=== PATIENT | female | born 1985 | race Asian ===

== ENCOUNTER → 2020-10-20 11:48 | Outpatient (CLI) | payer OTHER, SELFPAY ==
[2020-10-20 12:58] LABS: NATERA MAILED SPECIMEN
== END ==
PROVIDERS: PCP Student in an Organized Health Care Education/Training Program; Visit Provider Obstetrics & Gynecology
DX: Z31.430 Encounter of female for testing for genetic disease carrier status for procreative management (principal)
CPT/HCPCS: 36415

== ENCOUNTER 2021-05-11 02:40 | Inpatient (IN) | payer OTHER, SELFPAY ==
[2021-05-11] VITALS (84 sets, daily range): BP systolic 100–142; BP diastolic 51–90; PULSE 74–151; RESP 14–18; TEMP 36.7–37.4; O2SAT 91–100; BMI 28.0
[2021-05-11] MEDS: Lactated Ringers 500 ML 999 ML IV (02:50)
[2021-05-11 03:00] LABS: Absolute Lymphocyte Count 1.55 X10^3/uL (0.83-4.51); Absolute Neutrophil Count 6.7 X10^3/uL (2.0-7.7); Basophil# 0.04 X10^3/uL; Basophil% 0.4 % (0-1); Eosinophil# 0.24 X10^3/uL; Eosinophils% 2.6 % (0-5); Hematocrit 34.7 % (37-47); Hemoglobin 11.6 g/dL (12.0-15.0); Lymphocyte # 1.55 X10^3/ul (0.83-4.51); Lymphocyte % 16.9 % (19-41); Mean Corp Hgb Conc 33.4 g/dL (32-36); Mean Corpuscular Hgb 33.7 pg (27.0-32.0); Mean Corpuscular Volume 100.9 fL (81-99); Mean Platelet Vol. 10.6 fl (6.2-12.0); Monocyte% 6.5 % (0-10); NRBC Flagged by Analyzer 0 % (0-5); Neutrophil # 6.69 X10^3/uL (2.7-7.7); Neutrophil % 73.1 % (47-70); Platelet Count 214 K/mm3 (150-450); RBC Distribution Width CV 13.1 % (11.6-14.6); RBC Distribution Width SD 48.7 fl (35.1-43.9); Red Blood Count 3.44 M/mm3 (4.2-5.4); White Blood Count 9.2 K/mm3 (4.4-11.0)
[2021-05-11] MEDS: Lactated Ringers 1,000 ML 200 ML IV ×2 (03:21→08:30)
[2021-05-11] MEDS: fentaNYL-bupivacaine (epidural) 100 ML BAG EPIDURAL ×2 (04:18→11:23)
--- NOTE | 2021-05-11 05:27 | HP.PCM.OB_ITS ---
HPI - General General Date of Admission: 05/11/21 HPI Narrative SHANNAN LECHUGA, is a 36 F who presents with ctxs. Maternal Data Information Final JAQUELIN: 05/20/21 Gestational age: 38&5 PFSH PFSH Medical History (Updated 05/11/21 @ 05:[address] Judi Almanza MD) Anemia PCOS (polycystic ovarian syndrome) Home Medications aspirin 81 mg DAILY 05/11/21 [History Last Taken Unknown] ferrous sulfate [iron] 325 mg QODAY 05/11/21 [History Last Taken Unknown] prenat vit-iron [id number] [Prena-Cap] 1 cap PO DAILY 05/11/21 [History Last Taken 05/09/21] Allergy/AdvReac Type Severity Reaction Status Date / Time No Known Allergies Allergy Verified 05/11/21 02:24 Surgical History (Updated 05/11/21 @ 05:[address] Judi Almanza MD) [place] teeth removed Social History Smoking Status: Never smoker History Elective abortions Hx Para 0 Spontaneous abortions Hx # Term Pregnancies Ectopic pregnancies Hx # Pregnancies Multiple births # of living children NST FHR Rate Baby A Baseline: 135 Variability:: Moderate Accelerations:: 15 x 15 Decelerations:: None Uterine Activity:: Q4-5 minutes Vital Signs Vital Signs Vital Signs: 05/11/21 02:18 05/11/21 02:20 05/11/21 03:50 Temperature 98.6 F Temperature Source Temporal Pulse Rate 75 74 85 Blood Pressure 125/76 H BP Systolic 125 BP Diastolic 76 Pulse Ox 100 100 05/11/21 03:55 05/11/21 03:57 05/11/21 03:59 Temperature Temperature Source Pulse Rate 96 110 H 90 Blood Pressure 131/83 H 137/75 H BP Systolic 131 137 BP Diastolic 83 75 Pulse Ox 99 94 05/11/21 04:00 05/11/21 04:04 05/11/21 04:05 Temperature Temperature Source Pulse Rate 92 93 99 Blood Pressure 132/73 H BP Systolic 132 BP Diastolic 73 Pulse Ox 98 100 05/11/21 04:09 05/11/21 04:10 05/11/21 04:14 Temperature Temperature Source Pulse Rate 99 100 104 H Blood Pressure 131/74 H BP Systolic 131 BP Diastolic 74 Pulse Ox 100 91 05/11/21 04:15 05/11/21 04:18 05/11/21 04:19 Temperature Temperature Source Pulse Rate 86 88 86 Blood Pressure 121/57 H 121/58 H BP Systolic 121 121 BP Diastolic 57 58 Pulse Ox 99 05/11/21 04:20 05/11/21 04:24 05/11/21 04:25 Temperature Temperature Source Pulse Rate 90 87 83 Blood Pressure 113/57 L BP Systolic 113 BP Diastolic 57 Pulse Ox 99 98 05/11/21 04:30 05/11/21 04:31 05/11/21 04:35 Temperature Temperature Source Pulse Rate 77 82 Blood Pressure 118/64 117/66 BP Systolic 118 117 BP Diastolic 64 66 Pulse Ox 99 99 05/11/21 04:39 05/11/21 05:10 Temperature Temperature Source Pulse Rate 77 88 Blood Pressure 112/66 113/67 BP Systolic 112 113 BP Diastolic 66 67 Pulse Ox Weight Weight: 158 lb Body Mass Index (BMI) 28.0 Physical Exam Const alert, oriented x3 and no apparent distress Chest inspection of chest normal Resp normal respiratory effort GI soft to palpation, non-tender and non-distended Inspection: gravid external exam normal Narrative: cvx - 8/90/0, AROM blood tinged fluid Extremity normal to inspection Labs Labs Labs: Blood Type A POSITIVE Antibody Screen NEGATIVE Hct 34.7 % (37-47) L Hgb 11.6 g/dL (12.0-15.0) L SEE [facility] H&P Assessment & Plan (1) 38 weeks gestation of : COMMENT: 38&5 in labor PLAN: Admit to L&D Expectant management Pain - epidural GBS negative COVID negative EFW - less than 4500g, patient with adequate pelvis (2) Anemia: QUALIFIERS: Anemia type: unspecified type Qualified Code(s): D64.9 - Anemia, unspecified
[2021-05-11] MEDS: Oxytocin 30 units/NS 500 ml 30 UNITS/500 ML IV.SOLN IV (09:30)
[2021-05-11] MEDS: Oxytocin 30 units/NS 500 ml 30 UNITS/500 ML IV.SOLN 334 UNITS IV (11:55)
--- NOTE | 2021-05-11 13:12 | EX.PCM.OBRPT ---
Assessment & Plan (1) 38 weeks gestation of : COMMENT: 38&5 in labor (2) Advanced maternal age (AMA) in : (3) Vacuum extractor delivery, delivered: (4) Maternal exhaustion complicating labor and delivery: (5) Second degree laceration of perineum, delivered, current hospitalization: (6) Spontaneous onset of labor: Maternal Data Information Final JAQUELIN: 05/20/21 Gestational age: 38 5/7 Vaginal Delivery Maternal Presentation Maternal Presentation: Active Labor Operative Information Date of Procedure: 05/11/21 Pre-Operative Diagnosis: maternal exhaustion, 38 weeks, labor Surgery / Procedure Performed: Vacuum Assisted Vaginal Delivery (outlet) Type of Anesthesia: Epidural Special Medications: none Drain: [place] to straight drain Estimated Blood Loss: 600 Time of Delivery: 11:51 Findings Description of Procedure: Patient was complete and pushing for over 2-1/2 hours. She had descent from 0 to plus 4 out of 5 station. She was labia during pushing. Estimated weight was approximately 3000 g clinically. Pelvis is clinically adequate. [place] is in place to straight drain. Epidural was adequate. I discussed with the patient option of trial of vacuum-assisted vaginal delivery. Patient has been pushing adequately and was very fatigued. She desired to proceed. The vacuum was placed on the flexion point and the vacuum created 550 mmHg. Pulled with 2 pulls to and the vacuum was removed with no pop offs. A vigorous female was delivered MAREK over a second-degree perineal laceration. A loose nuchal cord ?1 was easily reduced. The remainder the infant was delivered with maternal pushing and gentle traction only in less than 15 seconds. The Pitocin infusion was initiated for active management of the third stage. The cord was clamped and cut after 1 minute. The was attended to by the waiting nursing staff. The placenta was delivered spontaneously and intact. The cervix and vagina were intact. The second-degree perineal laceration was repaired with 3-0 Vicryl suture and 2-0 Vicryl suture in a running standard fashion. There was a small right vaginal wall laceration that was bleeding and it was repaired as well. Sponge and needle counts were correct. A vaginal sweep was completed by me. Presentation: MAREK Amniotic Membrane Rupture Type: Artificial Amniotic Fluid Description: Clear Placental Delivery Description: Spontaneous Placenta Disposition: [facility] Cord Vessel Description: 3 Vessels Cord Entanglement: Around neck x 1, loose Nuchal Cord Compression: Without compression Cord Gases: ABG and VBG Infant A Gender: Female (Little) (1 minute): 8 (5 minute): 9 Delayed Cord Clamping: Yes Post Vaginal Delivery Medications Given After Delivery: IV Pitocin Episiotomy Description: None Laceration: 2nd degree (perineal ) Complication Complications: None
--- NOTE | 2021-05-11 13:35 | EKGRS_ITS ---
Test Reason : WP Blood Pressure : / mmHG Vent. Rate : 111 BPM Atrial Rate : 111 BPM P-R Int : 150 ms QRS Dur : 074 ms QT Int : 332 ms P-R-T Axes : 066 072 055 degrees QTc Int : 451 ms Sinus tachycardia Otherwise normal ECG Confirmed by REMI ROBLEDO, LUIS EDUARDO ([id number]), film editor supervisor BRE URIBE ([id number]) on 05/19/2021 7:56:32 AM Referred By: STORM Confirmed By:LUIS EDUARDO KHALIL MD
[2021-05-11 14:08] LABS: Hematocrit 30.9 % (37-47); Hemoglobin 10.2 g/dL (12.0-15.0); Mean Corpuscular Hgb 33.7 pg (27.0-32.0); Mean Platelet Vol. 10.7 fl (6.2-12.0); Platelet Count 183 K/mm3 (150-450); RBC Distribution Width SD 48.7 fl (35.1-43.9); Red Blood Count 3.03 M/mm3 (4.2-5.4); White Blood Count 18.3 K/mm3 (4.4-11.0)
[2021-05-11 14:18] LABS: International Normalized Ratio 1.1; Prothrombin Time (Protime)PT. 13.1 SECONDS (11.7-14.9)
[2021-05-11 14:19] LABS: Partial Thromboplast Time 29.3 Seconds (24.1-36.2)
[2021-05-11 14:32] LABS: AST(SGOT) 20 U/L (15-37); Alanine Aminotransfer ALT/SGPT 18 U/L (13-56); Creatinine, Serum 0.64 mg/dL (0.55-1.02); EST Glomerular Filtration Rate 110 mL/min (>60); Est Glom Filt Rate - Afr Amer 133 mL/min (>60); Estimated Creatinine Clearance 98.59 ml/min; Uric Acid 5.8 mg/dL (2.6-6.0)
[2021-05-11 17:13] LABS: Protein, Urine (Random) 105.7 mg/dL (<11.9); Protein:Creat Ratio 1103 mg/g CRE (0-200)
[2021-05-11] MEDS: Acetaminophen 500 MG Tablet 1000 MG PO (20:58)
[2021-05-12 00:18] VITALS: BP 126/80; PULSE 88; RESP 16; TEMP 36.6
[2021-05-12 05:06] VITALS: BP 117/86; PULSE 111; RESP 16; TEMP 36.7
[2021-05-12 05:23] LABS: Hematocrit 27.8 % (37-47); Hemoglobin 9.3 g/dL (12.0-15.0); Mean Corp Hgb Conc 33.5 g/dL (32-36); Mean Corpuscular Hgb 33.7 pg (27.0-32.0); Mean Corpuscular Volume 100.7 fL (81-99); Mean Platelet Vol. 10.7 fl (6.2-12.0); Platelet Count 168 K/mm3 (150-450); RBC Distribution Width CV 13.2 % (11.6-14.6); RBC Distribution Width SD 48.3 fl (35.1-43.9); Red Blood Count 2.76 M/mm3 (4.2-5.4); White Blood Count 15.2 K/mm3 (4.4-11.0)
[2021-05-12] MEDS: Acetaminophen 500 MG Tablet 1000 MG PO ×2 (05:41→20:34)
[2021-05-12 05:50] LABS: ALB/GLOB Ratio 0.7 RATIO (0.9-2.4); AST(SGOT) 35 U/L (15-37); Alanine Aminotransfer ALT/SGPT 18 U/L (13-56); Albumin, Serum 2.3 g/dL (3.2-5.0); Alkaline Phosphatase 86 U/L (45-117); Anion Gap 4 (5-15); BUN 8 mg/dL (7-18); BUN/Creat Ratio 12.6 RATIO (10-20); Chloride 110 mmol/L (98-107); Creatinine, Serum 0.63 mg/dL (0.55-1.02); EST Glomerular Filtration Rate 112 mL/min (>60); Est Glom Filt Rate - Afr Amer 135 mL/min (>60); Estimated Creatinine Clearance 100.16 ml/min; Globulin 3.4 g/dL (2.2-4.2); Glucose 83 mg/dL (74-106); Protein, Total 5.7 g/dL (6.4-8.2); Sodium Level 139 mmol/L (136-145)
[2021-05-12 08:00] VITALS: BP 115/80; PULSE 99; RESP 16; TEMP 36.2
--- NOTE | 2021-05-12 08:50 | PCM.PN.OB ---
Subjective Subjective Pain well controlled, average lochia. Objective Data Objective Data Vital Signs: Vital Signs Temp Pulse Resp BP Pulse Ox 97.2 F L 99 16 115/80 99 05/12/21 08:00 05/12/21 08:00 05/12/21 08:00 05/12/21 08:00 05/11/21 14:11 Oxygen Delivery Method Room Air Weight: 71.668 kg Body Mass Index (BMI) 28.0 Intake & Output: Intake and Output for Last 24 Hours 05/10/21 05/11/21 05/12/21 23:59 23:59 23:59 Intake Total 2897.19 / 2897.19 Output Total 800 / 800 Balance 2097.19 / 2096.19 Lab / Micro Data Result Diagrams: 05/12/21 05:15 05/12/21 05:15 Labs: Laboratory Results - last 24 hr 05/11/21 13:55: WBC 18.3 H, RBC 3.03 L, Hgb 10.2 L, Hct 30.9 L, MCV 102.0 H, MCH 33.7 H, MCHC 33.0, RDW Std Deviation 48.7 H, RDW Coeff of Bree 13.0, Plt Count 183, MPV 10.7 05/11/21 13:55: PT 13.1, INR 1.1, APTT 29.3 05/11/21 13:55: Creatinine 0.64, Estim Creat Clear Calc 98.59, Est GFR (MDRD) Af Amer 133, Est GFR (MDRD) Non-Af 110, Uric Acid 5.8, AST 20, ALT 18 05/11/21 16:00: U Random Total Protein 105.7 H, Urine Creatinine 95.80, Protein/Creatinin Ratio 1103 H 05/12/21 05:15: WBC 15.2 H, RBC 2.76 L, Hgb 9.3 L, Hct 27.8 L, MCV 100.7 H, MCH 33.7 H, MCHC 33.5, RDW Std Deviation 48.3 H, RDW Coeff of Bree 13.2, Plt Count 168, MPV 10.7 05/12/21 05:15: Sodium 139, Potassium 4.0, Chloride 110 H, Carbon Dioxide 25.0, Anion Gap 4 L, BUN 8, Creatinine 0.63, Estim Creat Clear Calc 100.16, Est GFR (MDRD) Af Amer 135, Est GFR (MDRD) Non-Af 112, BUN/Creatinine Ratio 12.6, Glucose 83, Calcium 9.0, Total Bilirubin 0.50, AST 35, ALT 18, Alkaline Phosphatase 86, Total Protein 5.7 L, Albumin 2.3 L, Globulin 3.4, Albumin/Globulin Ratio 0.7 L Micro: Microbiology 05/11/21 02:50 Nasal Secretion SARS-CoV-2 Antigen (Rapid) - Final Physical Exam Const alert and no apparent distress Narrative: Fundus firm, below umbilicus. Assessment & Plan (1) Second degree laceration of perineum, delivered, current hospitalization: (2) Vacuum extractor delivery, delivered: (3) Acute blood loss anemia: PLAN: Suspect patient's tachycardia overnight was due to the blood loss from her delivery. Bleeding is stable now. Patient is tolerating anemia well. Will discharge home on iron supplementation. Recheck CBC tomorrow to ensure it stable. Patient is comfortable with this plan. is breast-feeding and doing well. Likely discharge home tomorrow.
[2021-05-12] MEDS: Dibucaine 30 GM Tube 1 APPLIC TOPICAL (08:58)
[2021-05-12] MEDS: Senna/Docusate Sodium 1 Tablet PO (08:58)
[2021-05-12 14:00] VITALS: BP 119/85; PULSE 107; RESP 16; TEMP 36.8
[2021-05-12 20:27] VITALS: BP 123/85; PULSE 90; RESP 18; TEMP 36.6
[2021-05-13 01:57] VITALS: BP 125/84; PULSE 95; RESP 18
[2021-05-13 05:43] LABS: Hemoglobin 8.1 g/dL (12.0-15.0); Mean Corp Hgb Conc 32.4 g/dL (32-36); Mean Corpuscular Hgb 33.1 pg (27.0-32.0); Mean Platelet Vol. 10.4 fl (6.2-12.0); Platelet Count 185 K/mm3 (150-450); RBC Distribution Width CV 13.3 % (11.6-14.6); RBC Distribution Width SD 50.4 fl (35.1-43.9); Red Blood Count 2.45 M/mm3 (4.2-5.4); White Blood Count 14.2 K/mm3 (4.4-11.0)
[2021-05-13 08:27] VITALS: BP 125/83; PULSE 101; RESP 16; TEMP 36.7
--- NOTE | 2021-05-13 11:08 | DS.PCM_ITS ---
Providers Date of Admission: 05/11/21 Primary Care Physician: Dr. Chyna Vang MD Reason For Visit: VAG DELIVERY Diagnosis Discharge Diagnosis (1) Second degree laceration of perineum, delivered, current hospitalization: Status: Acute Code(s): O70.1 - Second degree perineal laceration during delivery (2) Vacuum extractor delivery, delivered: Status: Acute Code(s): O75.9 - Complication of labor and delivery, unspecified (3) Acute blood loss anemia: Status: Acute Code(s): D62 - Acute posthemorrhagic anemia Medications at Discharge Home Medications ferrous sulfate [iron] 325 mg QODAY 05/11/21 prenat vit-iron [id number] 1 cap PO DAILY 05/11/21 Hospital Course Operations None Summary of Care Provided Hospital Course: 36 YOF admitted on 05/11/21 in labor. She pushed for approximately 3 hrs with good effort. She was becoming fatigued. An outlet vacuum assisted vaginal delivery was performed. She had a second degree laceration and mild atony after delivery. The atony was resolved with fundal massage and pitocin. However, several active bleeding vessels were present in her laceration. Her lacerations were repaired and hemostatic. Calulated EBL is approximately 1400 cc from delivery, c/w immediate hemorrhage. this resulted in acute blood loss anemia and was responsible for the patients tach ycardia after delivery. By PPD #2 her bleeding was average, she was tolerating the anemia well. She was to take iron supplements and her vitamin and follow up in the office in 1-2 weeks. Weight / BMI Weight Weight: 71.668 kg Body Mass Index (BMI) 28.0 ABG / Lab / Microbiology Data Result Diagrams: 05/13/21 05:15 05/12/21 05:15 Laboratory: Laboratory Results - last 24 hr 05/13/21 05:15: WBC 14.2 H, RBC 2.45 L, Hgb 8.1 L, Hct 25.0 L, MCV 102.0 H, MCH 33.1 H, MCHC 32.4, RDW Std Deviation 50.4 H, RDW Coeff of Bree 13.3, Plt Count 185, MPV 10.4 Microbiology: Microbiology 05/11/21 02:50 Nasal Secretion SARS-CoV-2 Antigen (Rapid) - Final D/C Instructions Discharge Diet: No restrictions May resume sexual activity in: 6 weeks Call your doctor if your incision/area has: Continuous Slow Oozing, Sudden Increased Bleeding, Foul Smelling Discharge and Swelling at the incision site Call your doctor if you observe: Fever of 101 or Higher and Inability to urinate Additional Instructions: Take an iron supplement every other day for 1 month for anemia. Please Follow Up With: Ingrid Ruiz MD When: Follow up with our office in 1-2 and 6 weeks or as needed. [phone] Meaningful Use Info Meaningful Use Diagnoses (Choose all that apply): None applicable Discharge Plan Admission Admit Date/Time: 05/11/21 02:40 Primary Reason for Your Visit: Labor and delivery Attending Provider: Ingrid Ruiz Primary Care Provider: Chyna Vang Discharge Orders/Prescriptions Prescriptions: Continued ferrous sulfate [iron] 325 mg (65 mg iron) Tablet 325 mg QODAY RF: 0 prenat vit-iron [id number] 95-1-50 mg Capsule 1 cap PO DAILY RF: 0 Discontinued aspirin 81 mg Capsule 81 mg DAILY RF: 0 Referrals / Follow Up: Chyna Vang MD [Primary Care Provider] - Disposition Disposition (needs filled in before D/C Order can be placed): Home, Self Care
--- NOTE | 2021-05-13 12:08 | PCM.PN.OB ---
Subjective Subjective Denies complaints Objective Data Objective Data Vital Signs: Vital Signs Temp Pulse Resp BP Pulse Ox 98.1 F 101 H 16 125/83 H 99 05/13/21 08:27 05/13/21 08:27 05/13/21 08:27 05/13/21 08:27 05/11/21 14:11 Oxygen Delivery Method Room Air Weight: 158 lb Body Mass Index (BMI) 28.0 Intake & Output: Intake and Output for Last 24 Hours 05/11/21 05/12/21 05/13/21 23:59 23:59 23:59 Intake Total 2897.19 / 2897.19 Output Total 800 / 800 Balance 2097.19 / 2096. Lab / Micro Data Result Diagrams: 05/13/21 05:15 05/12/21 05:15 Labs: Laboratory Results - last 24 hr 05/13/21 05:15: WBC 14.2 H, RBC 2.45 L, Hgb 8.1 L, Hct 25.0 L, MCV 102.0 H, MCH 33.1 H, MCHC 32.4, RDW Std Deviation 50.4 H, RDW Coeff of Bree 13.3, Plt Count 185, MPV 10.4 Micro: Microbiology 05/11/21 02:50 Nasal Secretion SARS-CoV-2 Antigen (Rapid) - Final Physical Exam Const alert, oriented x3 and no apparent distress HEENT normocephalic GI soft to palpation, non-tender and non-distended GI Narrative: fundus firm, mid & below umbilicus Extremity normal to inspection and no calf tenderness Assessment & Plan (1) Acute blood loss anemia: COMMENT: PPD#2 PLAN: HDS & tachycardia resolved Plan for PP iron supplementation (2) Vacuum extractor delivery, delivered: COMMENT: PPD#2 PLAN: Plan for discharge home as patient doing well
== END 2021-05-13 12:10 | disposition home or self-care (01) | DRG 807 ==
LOC: WPOUT 02:47 → WP 02:47
PROVIDERS: Admitting Provider Obstetrics & Gynecology; PCP Student in an Organized Health Care Education/Training Program; Visit Provider Obstetrics & Gynecology
DX: O99.02 Anemia complicating childbirth (principal); O69.81X0 Labor and delivery complicated by cord around neck, without compression, not applicable or unspecified; D64.9 Anemia, unspecified; O75.81 Maternal exhaustion complicating labor and delivery; O70.1 Second degree perineal laceration during delivery; Z3A.38 38 weeks gestation of pregnancy; Z20.822 Contact with and (suspected) exposure to COVID-19; Z79.82 Long term (current) use of aspirin; Z79.899 Other long term (current) drug therapy; Z37.0 Single live birth
CPT/HCPCS: 59025; 59050; 80053; 82565; 82570; 84156; 84450; 84460; 84550; 85025; 85027; 85610; 85730; 86850; 86900; 86901; 87426; 93005; 99218; J7120; 90686; G0378